=== PATIENT | female | born 1970 | race Caucasian/White ===

== ENCOUNTER 2019-04-18 12:45 | Emergency (ER) | payer OTHER ==
[~2019-04-18] VITALS: Ht 165.1 cm; Wt 59.0 kg
[2019-04-18] MEDS ORDERED: CIPRO500 MG PO (14:04)
[2019-04-18] MEDS ORDERED: ALLEGRA ALLERG180 MG PO (14:04)
== END 2019-04-18 14:24 | disposition home or self-care (01) ==
LOC: ER 12:45
DX: L27.1 Localized skin eruption due to drugs and medicaments taken internally (principal); R06.02 Shortness of breath; T36.8X5A Adverse effect of other systemic antibiotics, initial encounter; Y92.89 Other specified places as the place of occurrence of the external cause